=== PATIENT | male | born 1950 | race Caucasian/White ===

== ENCOUNTER → 2017-04-08 | Outpatient (CLI) | payer MEDICARE, BC ==
[~2017-04-08] MED LIST: CRESTOR PO; FLONASE 0.05% N16 G1; FLONASE16 GM; FLOVENT DI50 MCG/DIS IH; FLOVENT DISKU100 MCG INH; LIPITOR40 MG PO; MOBIC PO; PAXIL CR25 MG PO; PREDNISONE; SINGULAIR PO; UROXATRAL10 MG PO; VERAPAMIL ER120 M1 PO; VERAPAMIL HCL240 M1 PO; ZAFIRLUKAST20 MG PO; [UNRECOGNIZED DRUG - OTHER] PO
[2017-04-09 23:57] LABS: PSA, FREE 1.55 ng/mL (())
== END | disposition home or self-care (01) ==
LOC: SLABONLY 13:59
PROVIDERS: Urology
DX: R97.20 Elevated prostate specific antigen [PSA] (principal)
CPT/HCPCS: 36415; 84153; 84154